=== PATIENT | male | born 1965 | race Caucasian/White ===

== ENCOUNTER 2023-12-10 09:04 | Emergency (ER) | payer OTHER ==
[~2023-12-10] VITALS: Ht 182.9 cm; Wt 107.0 kg
[2023-12-10 10:00] LABS: BASOPHILS # (AUTO) 0.06 K/uL (0.00-0.20); BASOPHILS % (AUTO) 1.1 % (0.0-5.0); EOSINOPHILS # (AUTO) 0.18 K/uL (0.00-0.70); EOSINOPHILS % (AUTO) 3.2 % (0.0-8.0); HEMATOCRIT 47.5 % (42-54); IMMATURE GRANULOCYTE ABSOLUTE 0.02 K/uL (0-1); LYMPHOCYTES # (AUTO) 1.1 K/uL (1.0-4.8); LYMPHOCYTES % (AUTO) 20.4 % (21.0-51.0); MEAN CORPUSCULAR HEMOGLOBIN 30.6 pg (27.0-33.0); MEAN CORPUSCULAR HGB CONC 35.4 g/dL (32.0-36.0); MEAN CORPUSCULAR VOLUME 86.5 fL (79-99); MONOCYTES # (AUTO) 0.6 K/uL (0.1-1.0); MONOCYTES % (AUTO) 10.9 % (3.0-13.0); NEUTROPHILS # (AUTO) 3.6 K/uL (1.8-7.7); PLATELET COUNT (AUTO) 293 K/uL (130-400); RED BLOOD CELL COUNT(AUTO) 5.49 MIL/uL (4.50-6.20); RED CELL DISTRIBUTION WIDTH 12.2 % (11.0-15.5); WHITE BLOOD COUNT (AUTO) 5.6 K/uL (4.8-10.8)
[2023-12-10 10:28] LABS: ALBUMIN 3.9 g/dL (3.5-5.0); BILIRUBIN,TOTAL 1.2 mg/dL (0.2-1.0); CREATININE 1.1 mg/dL (0.5-1.5); POTASSIUM 3.7 mmol/L (3.5-5.1); TOTAL PROTEIN, SERUM 7.5 g/dL (6.0-8.3)
[2023-12-10 11:36] VITALS: BP 136/81; PULSE 64; RESP 18; O2SAT 98
== END 2023-12-10 11:43 | disposition home or self-care (01) ==
LOC: EDH 09:04
DX: K81.9 Cholecystitis, unspecified (principal); K82.8 Other specified diseases of gallbladder; E80.4 Gilbert syndrome
CPT/HCPCS: 36415; 76705; 80053; 83690; 85025

== ENCOUNTER 2024-01-19 14:00 | Observation (INO) | payer OTHER, SELFPAY ==
[~2024-01-19] VITALS: Ht 182.9 cm; Wt 108.7 kg
[2024-01-24 11:37] VITALS: BP 132/85; PULSE 54; RESP 18
[2024-01-24 11:42] LABS: BASOPHILS # (AUTO) 0.06 K/uL (0.00-0.20); BASOPHILS % (AUTO) 1.1 % (0.0-5.0); EOSINOPHILS % (AUTO) 1.9 % (0.0-8.0); HEMATOCRIT 49.1 % (42-54); IMMATURE GRANULOCYTE ABSOLUTE 0.02 K/uL (0-1); LYMPHOCYTES # (AUTO) 1.5 K/uL (1.0-4.8); LYMPHOCYTES % (AUTO) 27.1 % (21.0-51.0); MEAN CORPUSCULAR HEMOGLOBIN 30.4 pg (27.0-33.0); MEAN CORPUSCULAR HGB CONC 34.2 g/dL (32.0-36.0); MEAN CORPUSCULAR VOLUME 88.9 fL (79-99); MONOCYTES # (AUTO) 0.6 K/uL (0.1-1.0); MONOCYTES % (AUTO) 11.5 % (3.0-13.0); NEUTROPHILS # (AUTO) 3.1 K/uL (1.8-7.7); PLATELET COUNT (AUTO) 206 K/uL (130-400); RED BLOOD CELL COUNT(AUTO) 5.52 MIL/uL (4.50-6.20); RED CELL DISTRIBUTION WIDTH 13.4 % (11.0-15.5); WHITE BLOOD COUNT (AUTO) 5.4 K/uL (4.8-10.8)
[2024-01-24 11:58] LABS: CREATININE 1.2 mg/dL (0.5-1.5); POTASSIUM 4.2 mmol/L (3.5-5.1); TOTAL PROTEIN, SERUM 7.1 g/dL (6.0-8.3)
[2024-01-24 12:10] LABS: INR 0.94 (0.85-1.15); PROTHROMBIN TIME 10.9 SEC (9.6-11.6)
[2024-01-24 12:11] LABS: PARTIAL THROMBOPLASTIN TIME 29.3 SEC (26.3-35.5)
[2024-01-28] VITALS (17 sets, daily range): BP systolic 121–165; BP diastolic 64–91; PULSE 53–79; RESP 14–19
[2024-01-28] MEDS: LACTATED RINGERS 1000ML 1,000 ML IV ONE (09:36)
[2024-01-28] MEDS: CEFAZOLIN SODIUM 2 GM VIAL ONE (09:36)
[2024-01-28] MEDS ORDERED: BUPIVACAINE/PF 0.25% 30ML VIAL IJ ONE (10:45)
[2024-01-28] MEDS ORDERED: CEFAZOLIN SODIUM 1 GM VIAL ONE (10:45)
[2024-01-28] MEDS ORDERED: LIDOCAINE 1%-EPI 1:100,000 20 ML VIAL ONE (10:45)
[2024-01-28] MEDS ORDERED: LIDOCAINE PF 100MG/5ML (2%) SYRINGE 5ML ONE (10:46)
[2024-01-28] MEDS ORDERED: SUCCINYLCHOLINE CHLORIDE 20 MG/ML 10 ML VIAL ONE (10:46)
[2024-01-28] MEDS ORDERED: PROPOFOL 10 MG/ML 20ML VIAL IV ONE ×2 (10:46→11:42)
[2024-01-28] MEDS ORDERED: ROCURONIUM BROMIDE 10MG/1ML 5ML VL ONE (10:46)
[2024-01-28] MEDS ORDERED: MIDAZOLAM HCL 1 MG/ML 2ML VIAL ONE (10:46)
[2024-01-28] MEDS ORDERED: FENTANYL CITRATE PF 50 MCG/1 ML 2ML VIAL ONE (10:46)
[2024-01-28] MEDS: CEFAZOLIN SODIUM 1 GM VIAL IVPB ONE (10:48)
[2024-01-28] MEDS: BUPIVACAINE/PF 0.5% 30ML VIAL INJ ONE (10:51)
[2024-01-28] MEDS: LIDOCAINE 2%-EPI 1:200,000 20 ML VIAL IJ ONE (10:52)
[2024-01-28] MEDS ORDERED: METRONIDAZOLE 500MG/100ML BAG 100 ML ONE (11:15)
[2024-01-28] MEDS ORDERED: MEPERIDINE-PF 25 MG/ML SYG ONE (12:17)
[2024-01-28] MEDS: HYDRALAZINE 20MG/ML VIAL ONE (12:43)
[2024-01-28] MEDS ORDERED: AMOX1TAB16 PO (13:56)
[2024-01-28] MEDS ORDERED: ACET-2079 PO (13:56)
[2024-01-28] MEDS ORDERED: ONDA-104 PO (13:57)
== END 2024-01-28 14:10 | disposition home or self-care (01) ==
LOC: DAHIP 01-28 08:55 → EDSTATUS 01-28 11:00
PROVIDERS: ADMIT Surgery; ATTEND Surgery
DX: K80.00 Calculus of gallbladder with acute cholecystitis without obstruction (principal); K85.90 Acute pancreatitis without necrosis or infection, unspecified; R11.0 Nausea; Z79.899 Other long term (current) drug therapy; Z98.890 Other specified postprocedural states
CPT/HCPCS: 80053; 85025; 85610; 85730; 36415; 47562; 88304; A6260; G0378 ×2; G0379; A4663; J7030; A4600 ×2; A4452; J7120; J3010; J0690 ×3; J3490 ×4; J0330; J0665 ×2; J2001; J0360; J2250; J2704 ×2; J2175; C1769 ×3; A4649 ×4; A4930; A4215; A4223; A4222; A4221

== ENCOUNTER 2024-02-05 04:52 | Inpatient (IN) | payer OTHER, SELFPAY ==
[~2024-02-05] VITALS: Ht 182.9 cm; Wt 104.6 kg
[~2024-02-05 04:52] MED LIST: ACET-2079 PO; AMOX1TAB16 PO; ONDA-104 PO
[2024-02-05 05:05] LABS: BASOPHILS # (AUTO) 0.08 K/uL (0.00-0.20); BASOPHILS % (AUTO) 0.9 % (0.0-5.0); EOSINOPHILS # (AUTO) 0.01 K/uL (0.00-0.70); EOSINOPHILS % (AUTO) 0.1 % (0.0-8.0); HEMATOCRIT 51.6 % (42-54); IMMATURE GRANULOCYTE ABSOLUTE 0.04 K/uL (0-1); LYMPHOCYTES % (AUTO) 10.5 % (21.0-51.0); MEAN CORPUSCULAR HGB CONC 35.3 g/dL (32.0-36.0); MEAN CORPUSCULAR VOLUME 87.9 fL (79-99); MONOCYTES # (AUTO) 0.7 K/uL (0.1-1.0); MONOCYTES % (AUTO) 7.3 % (3.0-13.0); NEUTROPHILS # (AUTO) 7.5 K/uL (1.8-7.7); NEUTROPHILS % (AUTO) 80.8 % (40.0-77.0); PLATELET COUNT (AUTO) 245 K/uL (130-400); RED BLOOD CELL COUNT(AUTO) 5.87 MIL/uL (4.50-6.20); RED CELL DISTRIBUTION WIDTH 13.5 % (11.0-15.5); WHITE BLOOD COUNT (AUTO) 9.3 K/uL (4.8-10.8)
[2024-02-05] MEDS ORDERED: IOHEXOL 350 MG/ML 100ML INFUS..BTL IV ONE (05:17)
[2024-02-05 05:24] LABS: ALBUMIN 4.4 g/dL (3.5-5.0); ASPARTATE AMINOTRANSFERASE 521 U/L (10-37); BILIRUBIN,TOTAL 4.7 mg/dL (0.2-1.0); CARBON DIOXIDE 27 mmol/L (21-32); CHLORIDE 98 mmol/L (101-111); CREATINE KINASE, TOTAL 66 U/L (21-232); CREATININE 1.1 mg/dL (0.5-1.5); GLOMERULAR FILTR. RATE CALC 77 mL/min (>90); GLUCOSE,RANDOM 131 mg/dL (70-105); POTASSIUM 3.8 mmol/L (3.5-5.1); SODIUM SERUM 137 mmol/L (136-145); TOTAL PROTEIN, SERUM 8.5 g/dL (6.0-8.3); UREA NITROGEN, BLOOD 12 mg/dL (7-18)
[2024-02-05] MEDS: LIDOCAINE HCL 2% VISCOUS 15 ML UDCUP PO ONE (05:27)
[2024-02-05] MEDS: MAG/ALUM/SIMETH 30 ML UDCUP PO ONE (05:28)
[2024-02-05] MEDS: DICYCLOMINE HCL 10 MG/5 ML ML PO SCH (05:28)
[2024-02-05] MEDS: 0.9%NACL 1000ML 1,000 ML IV ONE (05:29)
[2024-02-05 05:53] LABS: ALANINE AMINOTRANSFERASE 826 U/L (12-78)
[2024-02-05] MEDS ORDERED: POTASSIUM CHLORIDE 20MEQ/100ML 100 ML IV PRN (07:30)
[2024-02-05] MEDS ORDERED: MAGNESIUM 2GM PREMIX 50ML 50 ML IV PRN (07:30)
[2024-02-05] MEDS ORDERED: LACTATED RINGERS 1000ML IV SCH (08:30)
[2024-02-05] MEDS: LACTATED RINGERS 1000ML 1,000 ML IV SCH (08:57)
[2024-02-05] MEDS: FAMOTIDINE 20MG VIAL IV SCH (08:57)
[2024-02-05] MEDS: HYDROMORPHONE 1 MG INJ IVP ONE (08:57)
[2024-02-05] MEDS: ZOSYN 3.375GM +NS 50ML IV SCH (09:00)
[2024-02-05 11:25] VITALS: BP 143/82; RESP 18
[2024-02-05 16:00] VITALS: BP 139/87; PULSE 52; RESP 20; O2SAT 95
[2024-02-05 20:00] VITALS: BP 139/77; PULSE 56; RESP 18
[2024-02-05 20:10] VITALS: O2SAT 97
[2024-02-05] MEDS: MORPHINE 2 MG SYG IVP PRN (22:20)
[2024-02-05 23:53] VITALS: BP 164/88; PULSE 57; RESP 18
[2024-02-06 04:00] VITALS: BP 147/83; PULSE 57; RESP 18
[2024-02-06 04:35] LABS: BASOPHILS # (AUTO) 0.06 K/uL (0.00-0.20); BASOPHILS % (AUTO) 1.3 % (0.0-5.0); EOSINOPHILS # (AUTO) 0.02 K/uL (0.00-0.70); EOSINOPHILS % (AUTO) 0.4 % (0.0-8.0); HEMATOCRIT 44.7 % (42-54); IMMATURE GRANULOCYTE ABSOLUTE 0.02 K/uL (0-1); LYMPHOCYTES % (AUTO) 22.8 % (21.0-51.0); MEAN CORPUSCULAR HEMOGLOBIN 30.6 pg (27.0-33.0); MEAN CORPUSCULAR HGB CONC 33.6 g/dL (32.0-36.0); MEAN CORPUSCULAR VOLUME 91.2 fL (79-99); MONOCYTES # (AUTO) 0.5 K/uL (0.1-1.0); MONOCYTES % (AUTO) 10.3 % (3.0-13.0); NEUTROPHILS % (AUTO) 64.8 % (40.0-77.0); PLATELET COUNT (AUTO) 209 K/uL (130-400); RED CELL DISTRIBUTION WIDTH 13.5 % (11.0-15.5); WHITE BLOOD COUNT (AUTO) 4.6 K/uL (4.8-10.8)
[2024-02-06 05:01] LABS: CREATININE 1.1 mg/dL (0.5-1.5); POTASSIUM 4.2 mmol/L (3.5-5.1)
[2024-02-06 08:00] VITALS: BP 140/78; PULSE 98; RESP 16; O2SAT 97
[2024-02-06 10:14] LABS: ALBUMIN 3.2 g/dL (3.5-5.0); BILIRUBIN,DIRECT 2.5 mg/dL (0.0-0.3); BILIRUBIN,TOTAL 4.6 mg/dL (0.2-1.0); TOTAL PROTEIN, SERUM 6.4 g/dL (6.0-8.3)
[2024-02-06 12:00] VITALS: BP 127/77; PULSE 46; RESP 16
[2024-02-06 16:00] VITALS: BP 133/87; PULSE 67; RESP 16
[2024-02-06 16:01] LABS: HEPATITIS A IGM ANTIBODY Non-Reactive (Nonreactive); HEPATITIS B CORE IGM ANTIBODY Non-Reactive (Negative); HEPATITIS B SURFACE ANTIGEN Non-Reactive (Nonreactive); HEPATITIS C ANTIBODY Non-Reactive (Nonreactive)
[2024-02-06 19:20] VITALS: O2SAT 97
[2024-02-06 20:00] VITALS: BP 132/79; PULSE 50; RESP 16
[2024-02-07] VITALS: BP 128/74; PULSE 45; RESP 16
[2024-02-07 04:00] VITALS: BP 120/67; PULSE 45; RESP 16
[2024-02-07 08:00] VITALS: BP_SYST 121; BP_SYST 142; BP_DIAS 77; BP_DIAS 82; PULSE 50; PULSE 53; RESP 17; RESP 18; O2SAT 97
[2024-02-07 09:35] LABS: CREATININE 1.3 mg/dL (0.5-1.5); POTASSIUM 3.7 mmol/L (3.5-5.1)
[2024-02-07 09:39] LABS: ALBUMIN 3.3 g/dL (3.5-5.0); BILIRUBIN,TOTAL 2.7 mg/dL (0.2-1.0); TOTAL PROTEIN, SERUM 6.6 g/dL (6.0-8.3)
[2024-02-07 16:00] VITALS: BP 136/85; PULSE 57; RESP 19
[2024-02-07 19:40] VITALS: O2SAT 97
[2024-02-07 20:00] VITALS: BP 137/68; PULSE 52; RESP 18
[2024-02-08] VITALS (18 sets, daily range): BP systolic 117–140; BP diastolic 56–82; PULSE 42–56; RESP 13–20; O2SAT 97
[2024-02-08 04:21] LABS: BASOPHILS # (AUTO) 0.06 K/uL (0.00-0.20); BASOPHILS % (AUTO) 1.2 % (0.0-5.0); EOSINOPHILS # (AUTO) 0.06 K/uL (0.00-0.70); EOSINOPHILS % (AUTO) 1.2 % (0.0-8.0); HEMATOCRIT 48.1 % (42-54); IMMATURE GRANULOCYTE ABSOLUTE 0.03 K/uL (0-1); LYMPHOCYTES # (AUTO) 1.6 K/uL (1.0-4.8); LYMPHOCYTES % (AUTO) 32.4 % (21.0-51.0); MEAN CORPUSCULAR HEMOGLOBIN 30.6 pg (27.0-33.0); MEAN CORPUSCULAR HGB CONC 33.7 g/dL (32.0-36.0); MEAN CORPUSCULAR VOLUME 90.8 fL (79-99); MONOCYTES # (AUTO) 0.6 K/uL (0.1-1.0); MONOCYTES % (AUTO) 12.1 % (3.0-13.0); NEUTROPHILS # (AUTO) 2.6 K/uL (1.8-7.7); NEUTROPHILS % (AUTO) 52.5 % (40.0-77.0); PLATELET COUNT (AUTO) 224 K/uL (130-400); RED CELL DISTRIBUTION WIDTH 13.2 % (11.0-15.5)
[2024-02-08 04:32] LABS: ALBUMIN 3.4 g/dL (3.5-5.0); BILIRUBIN,TOTAL 2.4 mg/dL (0.2-1.0); CREATININE 1.4 mg/dL (0.5-1.3); MAGNESIUM 2.4 mg/dL (1.80-2.40); TOTAL PROTEIN, SERUM 6.8 g/dL (6.0-8.3)
[2024-02-08] MEDS ORDERED: LIDOCAINE PF 100MG/5ML (2%) SYRINGE 5ML ONE (13:35)
[2024-02-08] MEDS ORDERED: PROPOFOL 10 MG/ML 20ML VIAL IV ONE (13:36)
[2024-02-08] MEDS ORDERED: ONDANSETRON 4MG INJ ONE (13:37)
[2024-02-08] MEDS ORDERED: FENTANYL CITRATE PF 50 MCG/1 ML 2ML VIAL ONE (13:37)
[2024-02-08] MEDS ORDERED: GLYCOPYRROLATE 0.2 MG/ML 5 ML VIAL ONE (13:39)
== END 2024-02-08 17:50 | disposition home or self-care (01) | DRG 439 ==
LOC: EDH 04:52 → EDHIP 09:44 → OBSVTOIN 09:44 → 4CH 12:00
PROVIDERS: ADMIT Hospitalist; ATTEND Hospitalist
PROC: 0DB68ZX Excision of Stomach, Via Natural or Artificial Opening Endoscopic, Diagnostic (ICD-10-PCS; principal; 2024-02-08)
DX: K85.90 Acute pancreatitis without necrosis or infection, unspecified (principal); K76.6 Portal hypertension; K74.60 Unspecified cirrhosis of liver; Z82.49 Family history of ischemic heart disease and other diseases of the circulatory system; Z90.49 Acquired absence of other specified parts of digestive tract
CPT/HCPCS: 36415; 43235; 43237; 71045; 74177; 74181; 76700; 80048; 80053; 80074; 80076; 82550; 83605; 83690; 83735; 84484; 85025; 93005; 99291; G0378; J1170; J2001; J2270; J2405; J2543; J2704; J3010; J3490; J7030; Q9967; A4215; A4222; A4223; A4620; A4657; S8037